=== PATIENT | male | born 1980 | race Caucasian/White ===

== ENCOUNTER 2016-06-12 11:06 | Emergency (ER) | payer MEDICAID ==
[2016-06-12 11:16] VITALS: BP 143/74; PULSE 85; RESP 16; TEMP 97.7; O2SAT 97
[2016-06-12] MEDS ORDERED: IBUPROFEN 600 MG TAB PO ONE (11:39)
--- NOTE | 2016-06-12 11:41 | EDPHY ---
H & P Time Seen by Provider: 06/12/16 11:20 HPI/ROS: CHIEF COMPLAINT: right pinky finger dislocation HISTORY OF PRESENT ILLNESS: 35-year-old otherwise healthy male presents to the emergency department with a right pinky finger dislocation. Patient was in a wrestling class when his finger got caught in his opponents clothing. Patient reports immediate pain and deformity. He reports tingling in this finger. He is [id number]. He has no other complaints. Smoking Status: Never smoked Physical Exam: GEN: Awake, alert, oriented, no acute distress RESP: nl resp effort MSK: Right pinky finger with dorsal dislocation at PIP joint, sensation intact to light touch, cap refill less than 2 seconds SKIN: No break in skin Constitutional: Initial Vital Signs Temperature (C) 36.5 C 06/12/16 11:14 Heart Rate 85 06/12/16 11:14 Respiratory Rate 16 06/12/16 11:14 Blood Pressure 143/74 H 06/12/16 11:14 O2 Sat (%) 97 06/12/16 11:14 O2 Delivery Mode Room Air Allergies/Adverse Reactions: No Known Allergies Allergy (Unverified 12/07/15 14:19) Home Medications: Medication Instructions Recorded Ofloxacin 0.3% [Ocuflox 0.3%] 2 drops RTEYE QID #1 opht.btl 12/07/15 VYVANSE 12/07/15 MDM/Departure - MDM Diagnostics: Right pinky finger x-ray independently reviewed by me, dislocation at PIP joint dorsally. No evidence of fracture. Procedures: I discussed the option of doing a digital block prior to this procedure, the patient refused this and preferred doing the reduction without anesthesia. Procedure: Dislocation reduction. Indication: Dislocation of the right pinky finger at PIP joint. Risks, benefits, alternatives discussed with the patient. Consent was obtained. The right pinky finger was reduced using a combination of traction and manipulation. The patient has a normal neurovascular exam distal to the injury post reduction. Patient tolerated the procedure well and is significantly more comfortable. The procedure was performed by myself. - Depart Disposition: Home, Routine, Self-Care Clinical Impression: Dislocation of right little finger Qualifiers: Encounter type: initial encounter Qualified Code(s): S63.256A - Unspecified dislocation of right little finger, initial encounter Condition: Good Instructions: Finger Dislocation (ED) Additional Instructions: Rest, ice, elevate, take 600 mg of ibuprofen every 8 hours with food for 3-5 days. Follow up with the hand doctor at 1st available appointment. I recommend physical therapy for her pinky. Keep your finger taped to your ring finger until your follow-up appointment. Return to the emergency department for pain that is not controlled, numbness or tingling to this finger, any other questions or concerns. Referrals: Ezequiel Romero DO [Primary Care Provider] - As per Instructions Moe Quach MD [Medical Doctor] - As per Instructions (Hand doctor on-call)
== END 2016-06-12 12:14 | disposition home or self-care (01) ==
PROC: 0RSWXZZ Reposition Right Finger Phalangeal Joint, External Approach (ICD-10-PCS; principal; 2016-06-12)
DX: S63.286A Dislocation of proximal interphalangeal joint of right little finger, initial encounter (principal); W23.0XXA Caught, crushed, jammed, or pinched between moving objects, initial encounter; Y92.89 Other specified places as the place of occurrence of the external cause; Y99.8 Other external cause status; Y93.72 Activity, wrestling